=== PATIENT | female | born 1975 | race African-American/Black ===

== ENCOUNTER 2016-04-20 11:09 | Emergency (ER) | payer MEDICAID ==
[~2016-04-20] VITALS: Ht 165.1 cm; Wt 80.7 kg
[~2016-04-20 11:09] MED LIST: COZAAR50 MG ORAL; FEOSOL325 MG ORAL; FUROSEMIDE20 M1 ORAL; FUROSEMIDE40 MG ORAL; NKM; NORVASC10 MG ORAL; POTASSIUM CHLO10 MEQ ORAL
[2016-04-20 12:30] VITALS: BP 161/98
[2016-04-20] MEDS ORDERED: Metoprolol 5mg/5ml Inj IVP SCH (13:00)
[2016-04-20 13:06] LABS: BASOPHILS % (AUTO) 1.2 % (0.0-2.0); EOSINOPHILS % (AUTO) 0.5 % (0.0-3.0); LYMPHOCYTES % (AUTO) 8.4 % (20.0-45.0); MEAN CORPUSCULAR HEMOGLOBIN 31.9 PG (27.0-31.0); MEAN CORPUSCULAR HGB CONC 33.2 G/DL (32.0-36.0); MEAN CORPUSCULAR VOLUME 96 FL (80-99); MEAN PLATELET VOLUME 8.9 FL (6.5-10.1); MONOCYTES % (AUTO) 7.6 % (1.0-10.0); NEUTROPHILS % (AUTO) 82.4 % (45.0-75.0); PLATELET COUNT 194 K/UL (150-450); RED BLOOD COUNT 4.44 M/UL (4.20-5.40); RED CELL DISTRIBUTION WIDTH 12.5 % (11.6-14.8); WHITE BLOOD COUNT 5.1 K/UL (4.8-10.8)
[2016-04-20 13:21] LABS: TROPONIN I < 0.30 ng/mL (<=0.30)
[2016-04-20 13:23] LABS: ALANINE AMINOTRANSFERASE 19 U/L (3-33); ALBUMIN/GLOBULIN RATIO 1.6 (1.0-2.7); ANION GAP 18 (5-15); ASPARTATE AMINO TRANSFERASE 25 U/L (5-40); CALCIUM 8.8 mg/dL (8.6-10.2); CARBON DIOXIDE 24 mEQ/L (20-30); CHLORIDE 95 mEQ/L (98-107); CREATININE 0.7 mg/dL (0.5-0.9); GLOMERULAR FILTRATION RATE > 60 mL/min (>60); HEMOLYSIS 41; POTASSIUM 3.7 mEQ/L (3.4-4.9); SODIUM 137 mEQ/L (135-145); TOTAL PROTEIN 6.9 g/dL (6.6-8.7)
[2016-04-20 13:34] LABS: CKMB 3.8 ng/mL (< 3.8)
[2016-04-20] MEDS ORDERED: COZAAR50 MG ORAL (13:56)
[2016-04-20] MEDS ORDERED: NORVASC10 MG ORAL (13:57)
[2016-04-20 14:09] LABS: APPEARANCE,URINE CLEAR; KETONES,URINE NEGATIVE (NEGATIVE); LEUKOCYTE ESTERASE ,URINE NEGATIVE (NEGATIVE); NITRITE,URINE NEGATIVE (NEGATIVE); PH,URINE 6 (4.5-8.0); PROTEIN,URINE 1+ (NEGATIVE); UROBILINOGEN,URINE NORMAL MG/DL (0.0-1.0)
--- NOTE | 2016-04-20 14:18 | Emergency Room Report ---
History of Present Illness General Chief Complaint: Flu Like Symptoms Source: Patient Present Illness HPI Patient is a 40-year-old female presented after increased difficulty breathing. Patient had gradual onset of symptoms. Patient had prior history of hypertension. She had had not been taking medications for several weeks. Patient had prior history of CHF. She had previously been hospitalized for similar type symptoms. Patient denied any current medications. She states that she had moved down to [facility] from [facility]. Allergies: Coded Allergies: PENICILLINS (Unverified Allergy, Intermediate, Hives, 03/23/14) Uncoded Allergies: COCONUT (Allergy, Intermediate, Hives, 03/23/14) Patient History Past Medical History: see triage record, HTN, CHF Last Menstrual Period: 2-8 Now: No Reviewed Nursing Documentation: PMH: Agreed, PSxH: Agreed Nursing Documentation-PMH Past Medical History: No History, Except For Hx Cardiac Problems: Yes - chf Hx Hypertension: Yes Hx Asthma: Yes Hx Cancer: No Hx Gastrointestinal Problems: No Hx Neurological Problems: Yes - migraine Hx Syncope: Yes Review of Systems All Other Systems: negative except mentioned in HPI Physical Exam Vital Signs Date Time Temp Pulse Resp B/P Pulse Ox O2 Delivery O2 Flow Rate FiO2 04/20/16 11:22 99.3 90 18 175/87 100 Room Air Sp02 EP Interpretation: reviewed, normal General Appearance: normal inspection, well appearing, no apparent distress, alert, GCS 15 Head: atraumatic ENT: normal ENT inspection, hearing grossly normal, normal voice Neck: normal inspection, full range of motion, supple, no bony tend Respiratory: normal inspection, normal breath sounds, no respiratory distress, no retraction, no wheezing Cardiovascular #1: regular rate, rhythm, no edema Gastrointestinal: normal inspection, normal bowel sounds, non tender, soft, no guarding, no hernia Genitourinary: no CVA tenderness Musculoskeletal: normal inspection, back normal, normal range of motion Neurologic: normal inspection, alert, responsive, speech normal Psychiatric: normal inspection, judgement/insight normal, mood/affect normal Skin: normal inspection, normal color, no rash Medical Decision Making Diagnostic Impression: Primary Impression: CHF (congestive heart failure) ER Course Patient presented for shortness of breath. Differential included but was not limited to anemia, pneumonia, pneumothorax, myocardial infarction, pericardial effusion, congestive heart failure, acidosis. Because of complexity of patient' s case laboratory testing and imaging studies were ordered. The patient was given IV metoprolol. Patient given IV Lasix Patient was noted to have a normal white blood count and elevation of her BNP consistent with CHF. A chest x-ray one view interpreted by me showed mild cardiomegaly without evident effusion. This is compared to her prior chest x-ray which was markedly improved. EKG interpreted by me showed normal sinus rhythm with a rate of [address] or T wave changes. Rhythm strip showed normal sinus rhythm with a rate in the 80s without PVCs or ectopy. The patient diuresed well. Patient with status that she felt better. Patient was advised followup with her primary care physician at [place] for further management of her CHF. Laboratory Tests Test 04/20/16 12:43 04/20/16 13:43 White Blood Count 5.1 K/UL (4.8-10.8) Red Blood Count 4.44 M/UL (4.20-5.40) Hemoglobin 14.2 G/DL (12.0-16.0) Hematocrit 42.6 % (37.0-47.0) Mean Corpuscular Volume 96 FL (80-99) Mean Corpuscular Hemoglobin 31.9 PG (27.0-31.0) H Mean Corpuscular Hemoglobin Concent 33.2 G/DL (32.0-36.0) Red Cell Distribution Width 12.5 % (11.6-14.8) Platelet Count 194 K/UL (150-450) Mean Platelet Volume 8.9 FL (6.5-10.1) Neutrophils (%) (Auto) 82.4 % (45.0-75.0) H Lymphocytes (%) (Auto) 8.4 % (20.0-45.0) L Monocytes (%) (Auto) 7.6 % (1.0-10.0) Eosinophils (%) (Auto) 0.5 % (0.0-3.0) Basophils (%) (Auto) 1.2 % (0.0-2.0) Sodium Level 137 mEQ/L (135-145) Potassium Level 3.7 mEQ/L (3.4-4.9) Chloride Level 95 mEQ/L (98-107) L Carbon Dioxide Level 24 mEQ/L (20-30) Anion Gap 18 (5-15) H Blood Urea Nitrogen 5 mg/dL (7-23) L Creatinine 0.7 mg/dL (0.5-0.9) Estimate Glomerular Filtration Rate > 60 mL/min (>60) Glucose Level 91 mg/dL (74-106) Calcium Level 8.8 mg/dL (8.6-10.2) Total Bilirubin 0.5 mg/dL (0.0-1.2) Aspartate Amino Transferase (AST) 25 U/L (5-40) Alanine Aminotransferase (ALT) 19 U/L (3-33) Alkaline Phosphatase 42 U/L (35-104) Total Creatine Kinase 170 U/L (26-140) H Creatine Kinase MB 3.8 ng/mL (< 3.8) Creatine Kinase MB Relative Index 2.2 Troponin I < 0.30 ng/mL (<=0.30) Pro-B-Type Natriuretic Peptide 1963 pg/mL (0-125) H Total Protein 6.9 g/dL (6.6-8.7) Albumin 4.3 g/dL (3.5-5.2) Globulin 2.6 g/dL Albumin/Globulin Ratio 1.6 (1.0-2.7) Urine Color Pending Urine Appearance Pending Urine pH Pending Urine Specific [place] Pending Urine Protein Pending Urine Glucose (UA) Pending Urine Ketones Pending Urine Occult Blood Pending Urine Nitrite Pending Urine Bilirubin Pending Urine Urobilinogen Pending Urine Leukocyte Esterase Pending Urine Opiates Screen Pending Urine Barbiturates Screen Pending Phencyclidine (PCP) Screen Pending Urine Amphetamines Screen Pending Urine Benzodiazepines Screen Pending Urine Cocaine Screen Pending Urine Marijuana (THC) Screen Pending Chest X-Ray Diagnostic Results EP Interpretation: Yes Findings: no consolidation, no effusion, no pneumothorax Number of Views: 1 Last Vital Signs Date Time Temp Pulse Resp B/P Pulse Ox O2 Delivery O2 Flow Rate FiO2 04/20/16 13:29 84 164/86 04/20/16 12:30 21 Room Air 04/20/16 12:30 99.0 100 Status: improved Disposition: HOME, SELF-CARE Condition: Stable Scripts Amlodipine Besylate (Norvasc) 10 Mg Tab 10 MG ORAL DAILY, #30 TAB Prov: Finesse Asif 04/20/16 Losartan Potassium* (COZAAR*) 50 Mg Tab 50 MG ORAL Q12HR, #60 TAB Prov: Finesse Asif 04/20/16 Referrals: [facility] (PCP) Patient Instructions: Heart Failure Finesse Asif Apr 20, 2016 14:18
[2016-04-20 14:22] LABS: BACTERIA,URINE FEW /HPF; MUCUS,URINE FEW /LPF (NONE/OCC); SQUAMOUS EPITHELIAL CELL,UR FEW /LPF (NONE/OCC); WBC,URINE 0-2 /HPF (0 - 2)
[2016-04-20 14:47] VITALS: BP 129/99
--- NOTE | 2016-04-20 16:38 | Diagnostic Imaging Report ---
Indication: SOB Technique: One view of the chest Comparison: 05/22/2014 Findings: The heart is enlarged. Lungs and pleural spaces are clear. Better inspiration currently. No significant interim change. Impression: Cardiomegaly. No acute process
--- NOTE | 2016-04-21 14:34 | Cardiology Report ---
APPROVED REPORT EKG Measurement Heart [id number] Sinus rhythm with short [place] Otherwise normal ECG
== END 2016-04-20 14:49 | disposition home or self-care (01) ==
LOC: EMR 11:49
DX: I50.9 Heart failure, unspecified (principal); I10 Essential (primary) hypertension; Z88.0 Allergy status to penicillin; Z91.018 Allergy to other foods; Z87.09 Personal history of other diseases of the respiratory system
CPT/HCPCS: 36415; 71010; 80053; 80300; 81003; 82550; 82553; 83880; 84484; 85025; 93005; 96374; 96375; 99284; J1940

== ENCOUNTER 2016-08-17 07:10 | Emergency (ER) | payer MEDICAID ==
[~2016-08-17] VITALS: Ht 165.1 cm; Wt 72.6 kg
[2016-08-17 07:53] VITALS: BP 163/104
[2016-08-17 08:04] LABS: BASOPHILS % (AUTO) 1.3 % (0.0-2.0); LYMPHOCYTES % (AUTO) 26.5 % (20.0-45.0); MEAN CORPUSCULAR HEMOGLOBIN 31.3 PG (27.0-31.0); MEAN CORPUSCULAR HGB CONC 32.9 G/DL (32.0-36.0); MEAN CORPUSCULAR VOLUME 95 FL (80-99); MEAN PLATELET VOLUME 8.8 FL (6.5-10.1); MONOCYTES % (AUTO) 5.3 % (1.0-10.0); PLATELET COUNT 212 K/UL (150-450); RED BLOOD COUNT 4.55 M/UL (4.20-5.40); RED CELL DISTRIBUTION WIDTH 12.7 % (11.6-14.8)
[2016-08-17 08:19] LABS: ALANINE AMINOTRANSFERASE 19 U/L (3-33); ALBUMIN/GLOBULIN RATIO 1.5 (1.0-2.7); ANION GAP 14 (5-15); ASPARTATE AMINO TRANSFERASE 26 U/L (5-40); CALCIUM 8.4 mg/dL (8.6-10.2); CARBON DIOXIDE 24 mEQ/L (20-30); CHLORIDE 101 mEQ/L (98-107); CREATININE 0.8 mg/dL (0.5-0.9); GLOMERULAR FILTRATION RATE > 60 mL/min (>60); HEMOLYSIS 88; POTASSIUM 4.3 mEQ/L (3.4-4.9); SODIUM 139 mEQ/L (135-145); TOTAL PROTEIN 6.5 g/dL (6.6-8.7); TROPONIN I < 0.30 ng/mL (<=0.30)
--- NOTE | 2016-08-17 08:20 | Emergency Room Report ---
History of Present Illness General Chief Complaint: Abdominal Pain Source: Patient Present Illness HPI 40-year-old female presents ED complaining of abdominal pain and shortness of breath. States she developed cramping abdominal pain with diarrhea since yesterday. Pain is a 5/10, nonradiating. Denies fevers or chills. Denies nausea or vomiting. Denies chest pain. Is complaining of shortness of breath. Has history of CHF. Patient states she has not taken her medication in several months because she ran out. Denies cough. No other aggravating relieving factors. Denies any other associated symptom Allergies: Coded Allergies: PENICILLINS (Unverified Allergy, Intermediate, Hives, 03/23/14) Uncoded Allergies: COCONUT (Allergy, Intermediate, Hives, 03/23/14) Patient History Past Medical History: HTN, CHF, asthma, migraines Past Surgical History: none Pertinent Family History: none Social History: Denies: alcohol use, drug use, smoking Last Menstrual Period: 08/10/16 Now: No Immunizations: UTD Reviewed Nursing Documentation: PMH: Agreed, PSxH: Agreed Nursing Documentation-PMH Hx Cardiac Problems: Yes - chf Hx Hypertension: Yes Hx Asthma: Yes Hx Cancer: No Hx Gastrointestinal Problems: No Hx Neurological Problems: Yes - migraine Hx Syncope: Yes Review of Systems All Other Systems: negative except mentioned in HPI Physical Exam Vital Signs Date Time Temp Pulse Resp B/P Pulse Ox O2 Delivery O2 Flow Rate FiO2 08/17/16 07:18 98.1 61 15 169/102 98 Room Air Sp02 EP Interpretation: reviewed, normal General Appearance: no apparent distress, alert, GCS 15, non-toxic Head: normocephalic, atraumatic Eyes: bilateral eye PERRL, bilateral eye normal inspection ENT: hearing grossly normal, normal pharynx, no angioedema, normal voice Neck: full range of motion, supple/symm/no masses Respiratory: chest non-tender, lungs clear, normal breath sounds, speaking full sentences Cardiovascular #1: regular rate, rhythm, no edema Cardiovascular #2: 2+ carotid (R), 2+ carotid (L), 2+ radial (R), 2+ radial (L) , 2+ dorsalis pedis (R), 2+ dorsalis pedis (L) Gastrointestinal: normal bowel sounds, non tender, soft, non-distended, no guarding, no rebound Rectal: deferred Genitourinary: normal inspection, no CVA tenderness Musculoskeletal: back normal, gait/station normal, normal range of motion, non- tender Neurologic: alert, oriented x3, responsive, motor strength/tone normal, sensory intact, speech normal Psychiatric: judgement/insight normal, memory normal, mood/affect normal, no suicidal/homicidal ideation Reflexes: 3+ bicep (R), 3+ bicep (L), 3+ tricep (R), 3+ tricep (L), 3+ knee (R) , 3+ knee (L) Skin: normal color, no rash, warm/dry, well hydrated Lymphatic: no adenopathy Medical Decision Making Diagnostic Impression: Primary Impression: CHF (congestive heart failure) Qualified Codes: I50.9 - Heart failure, unspecified Additional Impression: Hypertensive urgency ER Course Hospital Course 40-year-old female presents ED complaining of shortness of breath, abd pain and diarrhea Differential diagnoses include: AL/unstable angina, contusion, muscle strain, PTX, rib fracture Clinical course Patient placed on stretcher. on senior ecologist. After initial history and physical I ordered labs, EKG, chest x-ray, IVFs labs reviewed- no leukocytosis, hemoglobin/hematocrit stable, electrolytes ok, trop negative, BNP elevated Chest x-ray- cardiomegaly EKG - NSR, twave inversions in lateral leads, interpreted by me Blood pressure elevated. Given hydralazine with improvement. Given presentation and risk factors I believe patient should be admitted Because of insurance patient will be transferred. Patient states she does not want to be transferred. Insurance would not approve patient for admission here. Patient states she wishes to go home. Understands the risks of leaving. Patient has competency to make her own decisions. Signed AMA form. I agreed to provide patient with refills of her medications I. I feel this is a highly complex case requiring extensive working including EKG/Rhythm strip, Xray/CT/US, Blood/urine lab work, repeat exams while in ED, and administration of strong opiates/narcotics for pain control, admission to hospital or close patient follow up. Diagnosis - CHF exacerbation, hypertensive urgency patient left AMA Labs Test 08/17/16 07:35 White Blood Count 6.0 K/UL (4.8-10.8) Red Blood Count 4.55 M/UL (4.20-5.40) Hemoglobin 14.2 G/DL (12.0-16.0) Hematocrit 43.3 % (37.0-47.0) Mean Corpuscular Volume 95 FL (80-99) Mean Corpuscular Hemoglobin 31.3 PG (27.0-31.0) Mean Corpuscular Hemoglobin Concent 32.9 G/DL (32.0-36.0) Red Cell Distribution Width 12.7 % (11.6-14.8) Platelet Count 212 K/UL (150-450) Mean Platelet Volume 8.8 FL (6.5-10.1) Neutrophils (%) (Auto) 66.0 % (45.0-75.0) Lymphocytes (%) (Auto) 26.5 % (20.0-45.0) Monocytes (%) (Auto) 5.3 % (1.0-10.0) Eosinophils (%) (Auto) 1.0 % (0.0-3.0) Basophils (%) (Auto) 1.3 % (0.0-2.0) Sodium Level 139 mEQ/L (135-145) Potassium Level 4.3 mEQ/L (3.4-4.9) Chloride Level 101 mEQ/L (98-107) Carbon Dioxide Level 24 mEQ/L (20-30) Anion Gap 14 (5-15) Blood Urea Nitrogen 8 mg/dL (7-23) Creatinine 0.8 mg/dL (0.5-0.9) Estimat Glomerular Filtration Rate > 60 mL/min (>60) Glucose Level 101 mg/dL (74-106) Calcium Level 8.4 mg/dL (8.6-10.2) Total Bilirubin 0.3 mg/dL (0.0-1.2) Aspartate Amino Transf (AST/SGOT) 26 U/L (5-40) Alanine Aminotransferase (ALT/SGPT) 19 U/L (3-33) Alkaline Phosphatase 36 U/L (35-104) Total Creatine Kinase 91 U/L (26-140) Creatine Kinase MB 2.3 ng/mL (< 3.8) Creatine Kinase MB Relative Index 2.5 Troponin I < 0.30 ng/mL (<=0.30) Pro-B-Type Natriuretic Peptide 1273 pg/mL (0-125) Total Protein 6.5 g/dL (6.6-8.7) Albumin 3.9 g/dL (3.5-5.2) Globulin 2.6 g/dL Albumin/Globulin Ratio 1.5 (1.0-2.7) EKG Diagnostic Results Rate: normal Rhythm: NSR ST Segments: other - twave inversions in lateral leads ASA given to the pt in ED: No Rhythm Strip Diag. Results EP Interpretation: yes Rhythm: NSR, no PVC's, no ectopy Chest X-Ray Diagnostic Results Chest X-Ray Ordered: Yes # of Views/Limited/Complete: 1 View Interpretation: no consolidation, no effusion, no pneumothorax, no acute cardiopulmonary disease, other - cardiomegaly Indication: Shortness of Breath Impression: No acute disease - cardiomegaly Date Electronically Signed: Aug 15, 2016 Time Electronically Signed: 08:19 PA Scribe Text Judah Jimenez MD Last Vital Signs Date Time Temp Pulse Resp B/P Pulse Ox O2 Delivery O2 Flow Rate FiO2 08/17/16 07:53 63 15 163/104 100 Room Air 08/17/16 07:18 98.1 Status: improved Disposition: AGAINST MEDICAL ADVICE Condition: Serious Scripts Losartan Potassium* (COZAAR*) 50 Mg Tablet 50 MG ORAL TWICE A DAY for 30 Days, TAB Prov: JUDAH JIMENEZ M.D. 08/17/16 Furosemide* (LASIX*) 40 Mg Tablet 40 MG ORAL DAILY, #30 TAB Prov: JUDAH JIMENEZ M.D. 08/17/16 Amlodipine Besylate (Norvasc) 10 Mg Tablet 10 MG ORAL DAILY, #30 TAB Prov: JUDAH JIMENEZ M.D. 08/17/16 Referrals: [facility],REFERRING (PCP) JUDAH JIMENEZ M.D. Aug 17, 2016 08:20
[2016-08-17 08:29] LABS: CKMB 2.3 ng/mL (< 3.8)
[2016-08-17 08:40] VITALS: BP 144/76
[2016-08-17] MEDS ORDERED: Famotidine 20 MG/ 2ML VIAL IVP SCH (09:00)
[2016-08-17] MEDS ORDERED: COZAAR50 MG ORAL (09:39)
[2016-08-17] MEDS ORDERED: FUROSEMIDE40 MG ORAL (09:39)
[2016-08-17] MEDS ORDERED: NORVASC10 MG ORAL (09:39)
[2016-08-17 09:40] VITALS: BP 137/81
[2016-08-17 09:45] VITALS: BP 137/81
--- NOTE | 2016-08-17 13:47 | Diagnostic Imaging Report ---
Indication: Shortness of breath Technique: One view of the chest Comparison: 04/20/2016 Findings: Lungs and pleural spaces are clear. Heart is enlarged. There is no significant change Impression: Cardiomegaly. No acute process
== END 2016-08-17 09:45 | disposition left against medical advice (07) ==
LOC: EMR 07:45
DX: I50.9 Heart failure, unspecified (principal); I16.0 Hypertensive urgency; I51.7 Cardiomegaly; R19.7 Diarrhea, unspecified; R10.9 Unspecified abdominal pain; Z88.0 Allergy status to penicillin; Z91.018 Allergy to other foods
CPT/HCPCS: 36415; 71010; 80053; 82550; 82553; 83880; 84484; 85025; 93005; 96374; 96375; 99284; J0360; S0028

== ENCOUNTER 2016-08-18 07:31 | Emergency (ER) | payer MEDICAID ==
[~2016-08-18] VITALS: Ht 165.1 cm; Wt 72.6 kg
[2016-08-18 08:00] VITALS: BP 169/99
[2016-08-18 08:24] LABS: BASOPHILS % (AUTO) 1.2 % (0.0-2.0); EOSINOPHILS % (AUTO) 0.9 % (0.0-3.0); MEAN CORPUSCULAR HEMOGLOBIN 31.7 PG (27.0-31.0); MEAN CORPUSCULAR HGB CONC 33.2 G/DL (32.0-36.0); MEAN CORPUSCULAR VOLUME 95 FL (80-99); MEAN PLATELET VOLUME 9.3 FL (6.5-10.1); MONOCYTES % (AUTO) 5.1 % (1.0-10.0); NEUTROPHILS % (AUTO) 68.9 % (45.0-75.0); PLATELET COUNT 231 K/UL (150-450); RED BLOOD COUNT 4.55 M/UL (4.20-5.40); RED CELL DISTRIBUTION WIDTH 12.6 % (11.6-14.8); WHITE BLOOD COUNT 7.6 K/UL (4.8-10.8)
--- NOTE | 2016-08-18 08:38 | Emergency Room Report ---
History of Present Illness General Chief Complaint: Abdominal Pain Source: Patient Present Illness HPI 40-year-old female presents to ED complaining of shortness of breath, high blood pressure x3 days. Patient states she ran out of her blood pressure medications several months ago. Notes history of CHF. Notes shortness of breath when walking and when laying flat. Denies any chest pain. Denies any fevers or chills. Denies cough. Patient was here yesterday for similar presentation. Patient was to be admitted and transferred but patient refused transfer and left AMA. Patient is back stating that she went to the other hospital that she was to be transferred to but states that they refused to admit her. Patient states she came back here to get admitted. Agreed to transfer if necessary. Patient states that she was given prescriptions yesterday even though she left AMA. Did not fill the prescriptions. Nurse states that she observed patient ripping up the prescription. No other aggravating or relieving factors. Denies any other associated symptom Allergies: Coded Allergies: PENICILLINS (Unverified Allergy, Intermediate, Hives, 03/23/14) Uncoded Allergies: COCONUT (Allergy, Intermediate, Hives, 03/23/14) Patient History Past Medical History: HTN, CHF, asthma, migraines Past Surgical History: none Pertinent Family History: none Social History: Denies: alcohol use, drug use, smoking Last Menstrual Period: 08/10/16 Now: No Immunizations: UTD Reviewed Nursing Documentation: PMH: Agreed, PSxH: Agreed Nursing Documentation-PMH Past Medical History: No History, Except For Hx Cardiac Problems: Yes - chf Hx Hypertension: Yes Hx Asthma: Yes Hx Cancer: No Hx Gastrointestinal Problems: No Hx Neurological Problems: Yes - migraine Hx Syncope: Yes Review of Systems All Other Systems: negative except mentioned in HPI Physical Exam Vital Signs Date Time Temp Pulse Resp B/P Pulse Ox O2 Delivery O2 Flow Rate FiO2 08/18/16 07:43 97.3 72 18 185/116 97 Room Air Sp02 EP Interpretation: reviewed, normal General Appearance: no apparent distress, alert, GCS 15, non-toxic Head: normocephalic, atraumatic Eyes: bilateral eye PERRL, bilateral eye normal inspection ENT: hearing grossly normal, normal pharynx, no angioedema, normal voice Neck: full range of motion, supple/symm/no masses Respiratory: chest non-tender, lungs clear, normal breath sounds, speaking full sentences Cardiovascular #1: regular rate, rhythm, no edema Cardiovascular #2: 2+ carotid (R), 2+ carotid (L), 2+ radial (R), 2+ radial (L) , 2+ dorsalis pedis (R), 2+ dorsalis pedis (L) Gastrointestinal: normal bowel sounds, non tender, soft, non-distended, no guarding, no rebound Rectal: deferred Genitourinary: normal inspection, no CVA tenderness Musculoskeletal: back normal, gait/station normal, normal range of motion, non- tender Neurologic: alert, oriented x3, responsive, motor strength/tone normal, sensory intact, speech normal Psychiatric: judgement/insight normal, memory normal, mood/affect normal, no suicidal/homicidal ideation Reflexes: 3+ bicep (R), 3+ bicep (L), 3+ tricep (R), 3+ tricep (L), 3+ knee (R) , 3+ knee (L) Skin: normal color, no rash, warm/dry, well hydrated Lymphatic: no adenopathy Medical Decision Making Diagnostic Impression: Primary Impression: CHF (congestive heart failure) Qualified Codes: I50.9 - Heart failure, unspecified Additional Impression: Accelerated hypertension ER Course Hospital Course 40-year-old female presents ED complaining of shortness of breath, elevated BP. h/o CHF Differential diagnoses include: PR/unstable angina, contusion, muscle strain, PTX, rib fracture Clinical course Patient placed on stretcher. on quality assurance monitor body. After initial history and physical I ordered labs, EKG, chest x-ray labs reviewed- no leukocytosis, hemoglobin/hematocrit stable, troponins negative , BNP pending BNP yesterday was markedly elevated Chest x-ray- cardiomegaly EKG - NSR, LVH, peaked twaves in lateral leads interpreted by me Given hydralazine with BP improved because of insurance patient will be transferred. Patient agrees to transfer at this time I. I feel this is a highly complex case requiring extensive working including EKG/Rhythm strip, Xray/CT/US, Blood/urine lab work, repeat exams while in ED, and administration of strong opiates/narcotics for pain control, admission to hospital or close patient follow up. Diagnosis - CHF exacerbation, accelerated hypertension Transferred in serious condition Labs Test 08/18/16 08:10 White Blood Count 7.6 K/UL (4.8-10.8) Red Blood Count 4.55 M/UL (4.20-5.40) Hemoglobin 14.4 G/DL (12.0-16.0) Hematocrit 43.4 % (37.0-47.0) Mean Corpuscular Volume 95 FL (80-99) Mean Corpuscular Hemoglobin 31.7 PG (27.0-31.0) Mean Corpuscular Hemoglobin Concent 33.2 G/DL (32.0-36.0) Red Cell Distribution Width 12.6 % (11.6-14.8) Platelet Count 231 K/UL (150-450) Mean Platelet Volume 9.3 FL (6.5-10.1) Neutrophils (%) (Auto) 68.9 % (45.0-75.0) Lymphocytes (%) (Auto) 24.0 % (20.0-45.0) Monocytes (%) (Auto) 5.1 % (1.0-10.0) Eosinophils (%) (Auto) 0.9 % (0.0-3.0) Basophils (%) (Auto) 1.2 % (0.0-2.0) Sodium Level 140 mEQ/L (135-145) Potassium Level 3.5 mEQ/L (3.4-4.9) Chloride Level 100 mEQ/L (98-107) Carbon Dioxide Level 25 mEQ/L (20-30) Anion Gap 15 (5-15) Blood Urea Nitrogen 6 mg/dL (7-23) Creatinine 0.7 mg/dL (0.5-0.9) Estimat Glomerular Filtration Rate > 60 mL/min (>60) Glucose Level 88 mg/dL (74-106) Calcium Level 8.6 mg/dL (8.6-10.2) Total Bilirubin 0.4 mg/dL (0.0-1.2) Aspartate Amino Transf (AST/SGOT) 16 U/L (5-40) Alanine Aminotransferase (ALT/SGPT) 16 U/L (3-33) Alkaline Phosphatase 39 U/L (35-104) Total Creatine Kinase 79 U/L (26-140) Troponin I < 0.30 ng/mL (<=0.30) Total Protein 6.8 g/dL (6.6-8.7) Albumin 4.1 g/dL (3.5-5.2) Globulin 2.7 g/dL Albumin/Globulin Ratio 1.5 (1.0-2.7) EKG Diagnostic Results Rate: normal Rhythm: NSR ST Segments: other - LVH, twave inversions in lateral leads ASA given to the pt in ED: No Rhythm Strip Diag. Results EP Interpretation: yes Rhythm: NSR, no PVC's, no ectopy Chest X-Ray Diagnostic Results Chest X-Ray Ordered: Yes # of Views/Limited/Complete: 1 View Interpretation: no consolidation, no effusion, no pneumothorax, no acute cardiopulmonary disease, other - cardiomegaly Indication: Shortness of Breath Impression: No acute disease Date Electronically Signed: Aug 18, 2016 Time Electronically Signed: 08:37 Interpreting ER Physician: Judah Jimenez MD Last Vital Signs Date Time Temp Pulse Resp B/P Pulse Ox O2 Delivery O2 Flow Rate FiO2 08/18/16 08:00 68 16 169/99 100 Room Air 08/18/16 07:43 97.3 Status: improved Disposition: XFER [facility] Condition: Serious Referrals: [facility],REFERRING (PCP) JUDAH JIMENEZ M.D. Aug 18, 2016 08:38
--- NOTE | 2016-08-18 08:39 | Diagnostic Imaging Report ---
Indications: Shortness of breath Technique: Portable AP chest Findings: Comparison: 08/17/2016 Inspiratory effort has decreased. Linear density persists in left midlung. Visualized portions of lungs and pleura remain otherwise clear. Cardiac silhouette remains enlarged. Pulmonary vasculature remains within normal limits. IMPRESSION: No evidence of acute cardiopulmonary disease, unchanged Stable chronic changes as described
[2016-08-18 08:48] LABS: ALANINE AMINOTRANSFERASE 16 U/L (3-33); ALBUMIN/GLOBULIN RATIO 1.5 (1.0-2.7); ANION GAP 15 (5-15); ASPARTATE AMINO TRANSFERASE 16 U/L (5-40); CALCIUM 8.6 mg/dL (8.6-10.2); CARBON DIOXIDE 25 mEQ/L (20-30); CHLORIDE 100 mEQ/L (98-107); CREATININE 0.7 mg/dL (0.5-0.9); GLOMERULAR FILTRATION RATE > 60 mL/min (>60); HEMOLYSIS 6; POTASSIUM 3.5 mEQ/L (3.4-4.9); SODIUM 140 mEQ/L (135-145); TOTAL PROTEIN 6.8 g/dL (6.6-8.7)
[2016-08-18 09:00] VITALS: BP 176/103
[2016-08-18 09:15] VITALS: BP 155/75
[2016-08-18 09:15] LABS: TROPONIN I < 0.30 ng/mL (<=0.30)
[2016-08-18 09:38] LABS: CKMB 2.2 ng/mL (< 3.8)
[2016-08-18 10:30] VITALS: BP 190/107
[2016-08-18] MEDS ORDERED: Norco 5mg/325mg tab ORAL ONE (10:45)
[2016-08-18 11:12] VITALS: BP 165/93
[2016-08-18 11:16] VITALS: BP 165/93
--- NOTE | 2016-08-21 13:24 | Cardiology Report ---
APPROVED REPORT EKG Measurement Heart [id number] PA [id number] Normal sinus rhythm Voltage criteria for left ventricular hypertrophy T wave abnormality, consider inferolateral ischemia Prolonged QT Abnormal ECG
== END 2016-08-18 11:21 | disposition short-term general hospital (02) ==
LOC: EMR 08:18
DX: I50.9 Heart failure, unspecified (principal); I10 Essential (primary) hypertension; I51.7 Cardiomegaly; Z88.0 Allergy status to penicillin; Z91.018 Allergy to other foods; J45.909 Unspecified asthma, uncomplicated
CPT/HCPCS: 36415; 71010; 80053; 82550; 82553; 83880; 84484; 85025; 93005; 96374; 96375; 99285; J0360